=== PATIENT | male | born 1950 | race Caucasian/White ===

== ENCOUNTER 2021-06-09 12:26 | Outpatient (CLI) | payer MEDICARE, BC, SELFPAY ==
--- NOTE | 2021-06-09 12:38 | XR_ITS ---
WS: [id number] CHEST 2 VIEWS HISTORY: COUGH COMPARISON: 04/09/2017 Lungs: Hyperexpanded lungs from emphysema. Flattened diaphragms. No pneumonia or nodules. Mild biapic al pleural thickening and scarring is stable. Cardiac size: Normal. Mediastinum/Aorta: Mild atherosclerosis aorta. Bones: Mild RIGHT curvature thoracic spine. XR/XR chest 2V* [id number] IMPRESSION: Chronic emphysema. No pneumonia or nodules. Mild atherosclerosis aorta.
== END 2021-06-09 12:27 | disposition home or self-care (01) ==
LOC: RAD 12:32
PROVIDERS: PCP Family Medicine; Visit Provider Family Medicine
DX: R05 Cough (principal); J43.9 Emphysema, unspecified; I70.0 Atherosclerosis of aorta
CPT/HCPCS: 71046

== ENCOUNTER → 2022-05-22 09:41 | Outpatient (BNVA) | payer MEDICARE, BC, SELFPAY | PROVIDERS: PCP Family Medicine; Referring Provider Dermatology; Visit Provider Podiatrist Foot & Ankle Surgery | DX: L60.0 Ingrowing nail (principal); Q82.8 Other specified congenital malformations of skin | CPT/HCPCS: 99203; 99204 ==